=== PATIENT | male | born 1980 | race American Indian/Alaskan Native ===

== ENCOUNTER 2018-05-30 12:12 | Emergency (ER) | payer OTHER ==
--- NOTE | 2018-05-30 13:40 | Emergency Department Report ---
ED Extremity Problem HPI - General Chief complaint: Extremity Injury, Upper Stated complaint: LFT SHOULDER PAIN Time Seen by Provider: 05/30/18 12:52 Source: patient Mode of arrival: Ambulatory Limitations: No Limitations - History of Present Illness Initial comments: Patient is a 37-year-old male who is presenting with left shoulder pain. Patient is sent posterior shoulder pain is worse with movement and palpation. 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 Patient denies any direct trauma or falls. He states is been no cough cold congestion fevers or chills. Patient states he and his left shoulder proximal year ago and it improved however he is back hurting in a similar way at this time. Severity scale (0 -10): 8 - Related Data Previous Rx's Medication Instructions Recorded Last Taken Type Ibuprofen [Motrin] 800 mg PO Q8HR PRN #20 tablet 05/30/18 Unknown Rx methOCARBAMOL [Robaxin TAB] 500 mg PO Q6H PRN #15 tablet 05/30/18 Unknown Rx traMADol [Ultram] 50 mg PO Q6HR PRN #6 tablet 05/30/18 Unknown Rx Allergies Allergy/AdvReac Type Severity Reaction Status Date / Time No Known Allergies Allergy Unverified 01/30/15 15:26 ED Review of Systems ROS: Stated complaint: LFT SHOULDER PAIN Other details as noted in HPI Comment: All other systems reviewed and negative ED Past Medical Hx - Past Medical History Previous Medical History?: Yes Additional medical history: heart murmur - Surgical History Past Surgical History?: No - Social History Smoking Status: Never Smoker Substance Use Type: Alcohol - Medications Home Medications: Home Medications Medication Instructions Recorded Confirmed Last Taken Type Ibuprofen [Motrin] 800 mg PO Q8HR PRN #20 tablet 05/30/18 Unknown Rx methOCARBAMOL [Robaxin TAB] 500 mg PO Q6H PRN #15 tablet 05/30/18 Unknown Rx traMADol [Ultram] 50 mg PO Q6HR PRN #6 tablet 05/30/18 Unknown Rx ED Physical Exam - General Limitations: No Limitations General appearance: alert, in no apparent distress - Head Head exam: Present: atraumatic, normocephalic - Eye Eye exam: Present: normal appearance - ENT ENT exam: Present: mucous membranes moist - Neck Neck exam: Present: normal inspection, tenderness (to the left trapezius) - Respiratory Respiratory exam: Present: normal lung sounds bilaterally. Absent: respiratory distress, wheezes, rales, rhonchi - Cardiovascular Cardiovascular Exam: Present: regular rate, normal rhythm. Absent: systolic murmur, diastolic murmur, rubs, gallop - GI/Abdominal GI/Abdominal exam: Present: soft, normal bowel sounds - Rectal Rectal exam: Present: deferred - Extremities Exam Extremities exam: Present: normal inspection - Back Exam Back exam: Present: normal inspection - Neurological Exam Neurological exam: Present: alert, oriented X3 - Psychiatric Psychiatric exam: Present: normal affect, normal mood - Skin Skin exam: Present: warm, dry, intact, normal color. Absent: rash ED Course Vital Signs 05/30/18 12:19 Temperature 97.5 F L Pulse Rate 72 Respiratory 18 Rate Blood Pressure 127/85 O2 Sat by Pulse 99 Oximetry Critical care attestation.: If time is entered above; I have spent that time in minutes in the direct care of this critically ill patient, excluding procedure time. ED Disposition Clinical Impression: Shoulder strain Disposition: DC-01 TO HOME OR SELFCARE Is pt being admited?: No Does the pt Need Aspirin: No Condition: Stable Instructions: Musculoskeletal Pain (ED) Referrals: FRANK SERNA MD [Staff Physician] - 3-5 Days Forms: Work/School Release Form(ED) Time of Disposition: 13:40
== END 2018-05-30 13:57 | disposition home or self-care (01) ==
LOC: ED 12:12

== ENCOUNTER 2019-05-18 16:42 | Emergency (ER) | payer BC, OTHER ==
[2019-05-18 18:25] VITALS: BP 140/72
--- NOTE | 2019-05-18 18:29 | Event Note ---
ED Screening Note ED Screening Note: +dry cough nasal congestion states began a couple of days ago +nausea no vomiting no diarrhea no fever no SOB PMHx none no allergies to meds former smoker quit a year ago
--- NOTE | 2019-05-18 18:31 | Emergency Department Report ---
Chief Complaint: Upper Respiratory Infection Stated Complaint: CHEST CONS Time Seen by Provider: 05/18/19 18:22 - HPI History of Present Illness: pt is a 38 yo male who presents with dry cough nasal congestion states began a couple of days ago +nausea no vomiting no diarrhea no fever no SOB PMHx none no allergies to meds former smoker quit a year ago vitals are normal on exam: Non toxic appearing, no acute distress atraumatic, normocephalic normal appearance of the eyes, PERRL, EOMI, no periorbital edema or ecchymosis moist mucus membranes normal TMs and canals, normal oropharynx, no tonsilar hypertrophy or exudates regular heart rate and rhythm, no gallops, no rubs, no murmurs breath sounds are clear bilaterally, no w/r/r, no stridor A&O x4, no focal neuro deficit skin is warm, dry, intact Medical screening examination performed and there is no threat to life or limb at this time No clinical signs or symptoms of pneumonia No otitis media, no otitis externa, no pharyngitis or tonsillitis Symptoms and examination consistent with viral URI Advised to increase fluid intake discussed the importance of oral rehydration referred to PCP discussed strict return precautions - Exam Vital Signs: Vital Signs 05/18/19 18:24 Temperature 99 F Pulse Rate 84 Respiratory 18 Rate Blood Pressure 140/72 O2 Sat by Pulse 99 Oximetry MSE screening note: Focused history and physical exam performed. ED Disposition for MSE Clinical Impression: Upper respiratory infection Qualifiers: URI type: unspecified URI Qualified Code(s): J06.9 - Acute upper respiratory infection, unspecified Disposition: MED SCREENING EXAM-LEFT Is pt being admited?: No Does the pt Need Aspirin: No Condition: Stable Instructions: Upper Respiratory Infection (ED) Additional Instructions: may take mucinex over the counter. increase your fluid intake. may use a humidifier. follow up with a primary care doctor. return to the emergency room for any new or worsening symptoms. Referrals: JOSE MCRAE MD [Staff Physician] - 2-3 Days [facility] [Outside] - 2-3 Days [facility] [Outside] - 2-3 Days Forms: Work/School Release Form(ED) Time of Disposition: 18:29 Print Language: GREENLANDIC
== END 2019-05-18 18:30 | disposition left against medical advice (07) ==
LOC: ED 16:42
DX: J06.9 Acute upper respiratory infection, unspecified (principal)
CPT/HCPCS: 99282

== ENCOUNTER 2019-06-29 04:56 | Emergency (ER) | payer BC ==
[2019-06-29 06:35] LABS: Hemoglobin 14.4 gm/dl (11.8-15.2); Mean Corpuscular Volume 85 fl (84-94); Red Blood Count 5.18 M/mm3 (3.65-5.03)
[2019-06-29 06:39] LABS: Basophils % (Auto) 0.5 % (0.0-1.8); Eosinophils % (Auto) 0.2 % (0.0-4.3); Lymphocytes % (Auto) 26.5 % (13.4-35.0); Mean Corpuscular HGB Conc 33 % (32-34); Monocytes # (Auto) 0.4 K/mm3 (0.0-0.8); Monocytes % (Auto) 5.8 % (0.0-7.3); Platelet Count 241 K/mm3 (140-440); Red Cell Distribution Width 14.9 % (13.2-15.2)
--- NOTE | 2019-06-29 06:55 | XRay Report ---
CHEST 1 VIEW 6:41 AM INDICATION / CLINICAL INFORMATION: MAIN: Chest Pain X 1 WEEK. COMPARISON: None available. FINDINGS: SUPPORT DEVICES: None. HEART / MEDIASTINUM: No significant abnormality. LUNGS / PLEURA: No significant pulmonary or pleural abnormality. No pneumothorax. ADDITIONAL FINDINGS: No significant additional findings. IMPRESSION: 1. No acute findings. Signer Name: Bertin Bryson MD Signed: 06/29/2019 6:50 AM Workstation Name: [id number]
[2019-06-29 08:51] VITALS: BP 145/85
[2019-06-29] MEDS ORDERED: LORazepam 2 MG/ML VIAL ONE (09:05)
[2019-06-29 09:15] LABS: BUN/Creatinine Ratio 10; Blood Urea Nitrogen 10 mg/dL (9-20); Calcium 9.9 mg/dL (8.4-10.2); Hemolysis Index 9
--- NOTE | 2019-06-29 09:29 | Emergency Department Report ---
ED Chest Pain HPI - General Chief Complaint: Arrhythmia/Palpitations Stated Complaint: CHEST PALPITATIONS Time Seen by Provider: 06/29/19 08:36 Source: patient Mode of arrival: Ambulatory Limitations: No Limitations - History of Present Illness Initial Comments: Patient is 38 years old male with no significant past medical history. Patient presented to the ER complaining of substernal chest pain started last night. Patient stated that he is feeling like there is something moving in his chest. Patient stated that he has been having these symptoms for years but yesterday it was a little bit worse and he wanted to make sure that there is nothing serious going on with him. Patient denied any shortness of breath, fever, chills, nausea or vomiting. No abdominal pain. Patient also denied any headache weakness numbness or tingling sensation. MD Complaint: chest pain -: Last night Onset: during rest Pain Location: substernal Pain Radiation: none Severity scale (0 -10): 0 Quality: squeezing Consistency: intermittent - Related Data Previous Rx's Medication Instructions Recorded Last Taken Type Ibuprofen [Motrin] 800 mg PO Q8HR PRN #20 tablet 05/30/18 Unknown Rx methOCARBAMOL [Robaxin TAB] 500 mg PO Q6H PRN #15 tablet 05/30/18 Unknown Rx traMADoL [Ultram] 50 mg PO Q6HR PRN #6 tablet 05/30/18 Unknown Rx Allergies Allergy/AdvReac Type Severity Reaction Status Date / Time No Known Allergies Allergy Unverified 01/30/15 15:26 Heart Score - HEART Score History: Slightly suspicious EKG: Normal Age: < 45 Risk factors: 1-2 risk factors Troponin: < normal limit HEART Score: 1 - Critical Actions Critical Actions: 0-3 pts:0.9-1.7%risk of adverse cardiac event.Candidate for discharge ED Review of Systems ROS: Stated complaint: CHEST PALPITATIONS Other details as noted in HPI Comment: All other systems reviewed and negative Constitutional: denies: chills, fever Respiratory: denies: cough Gastrointestinal: denies: abdominal pain, nausea, vomiting, diarrhea, constipation, hematemesis, melena, hematochezia Musculoskeletal: denies: back pain Neurological: denies: headache, weakness, numbness, paresthesias, confusion ED Past Medical Hx - Past Medical History Previous Medical History?: Yes Additional medical history: heart murmur - Surgical History Past Surgical History?: No - Social History Smoking Status: Smoker, Current Status Unknown Substance Use Type: Alcohol - Medications Home Medications: Home Medications Medication Instructions Recorded Confirmed Last Taken Type Ibuprofen [Motrin] 800 mg PO Q8HR PRN #20 tablet 05/30/18 Unknown Rx methOCARBAMOL [Robaxin TAB] 500 mg PO Q6H PRN #15 tablet 05/30/18 Unknown Rx traMADoL [Ultram] 50 mg PO Q6HR PRN #6 tablet 05/30/18 Unknown Rx ED Physical Exam - General Limitations: No Limitations General appearance: alert, in no apparent distress - Head Head exam: Present: atraumatic, normocephalic, normal inspection - Eye Eye exam: Present: normal appearance - ENT ENT exam: Present: normal exam, normal orophraynx, mucous membranes moist - Neck Neck exam: Present: normal inspection, full ROM. Absent: tenderness, meningismus, lymphadenopathy, thyromegaly - Respiratory Respiratory exam: Present: normal lung sounds bilaterally - Cardiovascular Cardiovascular Exam: Present: regular rate, normal rhythm, normal heart sounds - GI/Abdominal GI/Abdominal exam: Present: soft, normal bowel sounds. Absent: distended, tenderness, guarding, rebound, rigid, organomegaly, mass, bruit, pulsatile mass, hernia - Extremities Exam Extremities exam: Present: normal inspection, full ROM, normal capillary refill. Absent: tenderness - Back Exam Back exam: Present: normal inspection, full ROM. Absent: CVA tenderness (R), CVA tenderness (L), muscle spasm, paraspinal tenderness, vertebral tenderness, rash noted - Neurological Exam Neurological exam: Present: alert, oriented X3, CN II-XII intact, normal gait, reflexes normal - Psychiatric Psychiatric exam: Present: normal mood - Skin Skin exam: Present: warm, intact, normal color. Absent: rash, cyanosis, diaphoretic, erythema, urticaria ED Course Vital Signs 06/29/19 06/29/19 06/29/19 05:03 08:33 08:45 Temperature 98.0 F Pulse Rate 99 H Respiratory 20 17 Rate Blood Pressure 148/78 145/85 O2 Sat by Pulse 98 98 Oximetry 06/29/19 08:50 Temperature 98.4 F Pulse Rate Respiratory Rate Blood Pressure O2 Sat by Pulse Oximetry TYLOR score - Tylor Score Age > 65: (0) No Aspirin use within the Past 7 Days: (0) No 3 or more CAD Risk Factors: (0) No 2 or more Angina events in past 24 hrs: (0) No Known CAD with more than 50% Stenosis: (0) No Elevated Cardiac Markers: (0) No ST Deviation Greater than 0.5mm: (0) No TYLOR Score: 0 ED Medical Decision Making - Lab Data Result diagrams: 06/29/19 05:19 06/29/19 05:19 - EKG Data -: EKG Interpreted by Me EKG shows normal: sinus rhythm Rate: tachycardia - EKG Data Interpretation: no acute changes - Radiology Data Radiology results: report reviewed - Medical Decision Making Patient is 38 years old male with no significant past medical history. Patient presented to the ER complaining of substernal chest pain started last night. Patient stated that he is feeling like there is something moving in his chest. Patient stated that he has been having these symptoms for years but yesterday it was a little bit worse and he wanted to make sure that there is nothing serious going on with him. Patient denied any shortness of breath, fever, chills, nausea or vomiting. No abdominal pain. Patient also denied any headache weakness numbness or tingling sensation. Patient stated that his symptoms is completely resolved. EKG is unremarkable except for sinus tachycardia. Chest x-ray is unremarkable. Labs reviewed and is unremarkable including 2 sets of troponin. Patient has fluctuation on his blood pressure. He told me that he was told that he has blood pressure before but he never been on any medication. I will start patient on hydrochlorothiazide 25mg daily and advised him to follow-up with his primary care physician in the next 2 to 3 days and to return to the ER if he develop any new symptoms. Critical care attestation.: If time is entered above; I have spent that time in minutes in the direct care of this critically ill patient, excluding procedure time. ED Disposition Clinical Impression: Hypertension, Chest pain Disposition: -01 TO HOME OR SELFCARE Is pt being admited?: No Condition: Stable Instructions: Hypertension (ED), Chest Pain (ED) Referrals: [facility] [Provider Group] - 3-5 Days
== END 2019-06-29 11:20 | disposition home or self-care (01) ==
LOC: ED 04:56
DX: I10 Essential (primary) hypertension (principal); R07.9 Chest pain, unspecified; F17.200 Nicotine dependence, unspecified, uncomplicated; Z79.899 Other long term (current) drug therapy
CPT/HCPCS: 36415; 71045; 80048; 84484; 85025; 93005; 93010; J2060